=== PATIENT | male | born 1985 | race Caucasian/White ===

== ENCOUNTER 2021-02-26 10:31 | Inpatient (IN) | payer OTHER ==
[~2021-02-26] VITALS: Ht 165.1 cm; Wt 73.7 kg
[2021-02-26 11:19] LABS: HEMOGLOBIN 14.6 gm/dl (14.0-17.5); RED BLOOD COUNT 4.71 M/UL (4.20-5.50); WHITE BLOOD COUNT 13.7 K/UL (4.5-11.0)
[2021-02-26 11:46] LABS: BUN/CREATININE RATIO 23 (0-10)
[2021-02-26] MEDS ORDERED: INSULIN PUMP INJ (14:30)
[2021-02-26 14:48] LABS: BUN/CREATININE RATIO 26 (0-10)
[2021-02-26 18:48] LABS: BUN/CREATININE RATIO 22 (0-10)
[2021-02-26 22:13] LABS: BUN/CREATININE RATIO 25 (0-10)
[2021-02-27 02:40] LABS: BUN/CREATININE RATIO 22 (0-10)
[2021-02-27 06:44] LABS: HEMOGLOBIN 13.3 gm/dl (14.0-17.5); RED BLOOD COUNT 4.35 M/UL (4.20-5.50); WHITE BLOOD COUNT 12.9 K/UL (4.5-11.0)
[2021-02-27 07:11] LABS: BUN/CREATININE RATIO 21 (0-10)
[2021-02-27 12:12] LABS: BUN/CREATININE RATIO 22 (0-10)
[2021-02-28 05:21] LABS: HEMOGLOBIN 12.9 gm/dl (14.0-17.5); RED BLOOD COUNT 4.24 M/UL (4.20-5.50)
[2021-02-28 05:22] LABS: WHITE BLOOD COUNT 8.9 K/UL (4.5-11.0)
[2021-02-28 05:42] LABS: BUN/CREATININE RATIO 14 (0-10)
[2021-03-01 05:13] LABS: BUN/CREATININE RATIO 17 (0-10)
[2021-03-01] MEDS ORDERED: HUMALOG 10100 UNITS/ SC (08:51)
[2021-03-01] MEDS ORDERED: LANTUS INS100 UTS/M1 SC ×2 (08:51)
== END 2021-03-01 13:03 | disposition home or self-care (01) | DRG 639 ==
LOC: ER1 10:31 → CDU 14:09 → CCU 14:09 → MED SURG 4 02-28 16:29
PROVIDERS: Physician Assistant; ADMIT Internal Medicine
DX: E10.10 Type 1 diabetes mellitus with ketoacidosis without coma (principal); E87.6 Hypokalemia; D72.829 Elevated white blood cell count, unspecified; R11.2 Nausea with vomiting, unspecified; Z20.822 Contact with and (suspected) exposure to COVID-19; E11.40 Type 2 diabetes mellitus with diabetic neuropathy, unspecified; E78.5 Hyperlipidemia, unspecified; Z79.4 Long term (current) use of insulin
CPT/HCPCS: 36415; 80048; 80053; 81001; 82009; 82803; 82962; 83036; 83690; 83735; 84132; 85025; 96374; 96375; 99285; J2405; J2550; J3475; J3480; J7030; U0002